=== PATIENT | female | born 1935 | race Caucasian/White ===

== ENCOUNTER → 2016-10-13 | Outpatient (CLI) | payer MEDICARE, BC ==
[2016-10-13 14:53] LABS: CH 27.6; CHCM 33.4; HCT 41.4 % (34.0-46.0); HDW 2.68; HGB 13.8 gm/dL (11.4-16.0); MCH 27.7 pg (25.0-35.0); MCHC 33.3 g/dL (31.0-37.0); MCV 83.2 fL (80.0-100.0); Mean Platelet Volume 7.9; RBC 4.98 m/uL (3.80-5.40); WBC 11.1 k/uL (3.8-10.6)
[2016-10-13 15:01] LABS: Anion Gap 8 mmol/L; Blood Urea Nitrogen 15 mg/dL (7-17); Calcium 9.1 mg/dL (8.4-10.2); Carbon Dioxide 27 mmol/L (22-30); Chloride 106 mmol/L (98-107); Glucose 110 mg/dL (74-99); Non-African American GFR(MDRD) >60 (>60 ml/min/1.73 sqM); Potassium 4.2 mmol/L (3.5-5.1); Sodium 141 mmol/L (137-145)
== END | disposition home or self-care (01) ==
LOC: LABWHC1 14:19
PROVIDERS: ATTEND Internal Medicine Clinical Cardiac Electrophysiology
DX: I47.1 Supraventricular tachycardia (principal)
CPT/HCPCS: 36415; 80048; 85027

== ENCOUNTER 2016-10-28 06:05 | Day surgery (SDC) | payer MEDICARE, BC ==
[~2016-10-28 06:05] MED LIST: SODIUM CHLORIDE 0.9% 1,000 ML IV SCH
[2016-10-28] MEDS: LACTATED RINGERS 1,000 ML IV SCH (06:46)
[2016-10-28 06:54] LABS: Prothrombin Time 19.3 sec (9.0-12.0)
[2016-10-28] MEDS ORDERED: fentaNYL (PF) 50 MCG/ML 2 ML AMP ONE (07:23)
[2016-10-28] MEDS ORDERED: ISOPROTERENOL 250 MCG/1.25 ML SYR IV ONE (07:23)
[2016-10-28] MEDS ORDERED: HYDROmorphone (PF) 1 MG/ML ONE (07:23)
[2016-10-28] MEDS ORDERED: PROPOFOL 10 MG/ML 20 ML VIAL IV ONE (07:23)
[2016-10-28] MEDS ORDERED: KETAMINE 10 MG/ML 20 ML VIAL ONE (07:23)
[2016-10-28] MEDS ORDERED: MIDAZOLAM 2 MG/2 ML VIAL ONE (07:23)
[2016-10-28] MEDS ORDERED: LIDOCAINE 2% INJ 20 MG/ML SQ ONE (08:14)
[2016-10-28] MEDS ORDERED: HYDROcodone/APAP 5-325MG 1 EACH TAB PO PRN (10:54)
[2016-10-28] MEDS ORDERED: ACETAMINOPHEN TAB 325 MG TAB PO PRN (10:54)
[2016-10-28] MEDS ORDERED: ACETAMINOPHEN IV (For NPO) 1,000 MG in EMPTY BAG 1 BAG IVPB ONE (10:54)
--- NOTE | 2016-10-28 10:54 | P.PCN ---
Preoperative Diagnosis: Shilo Leung I the pleasure seeing Mrs. Alexandre electrophysiology follow-up. As you know she had a history of recurrent presyncope and documented narrow complex supraventricular tachycardia. She also has atrial fibrillation. She underwent a diagnostic EP study. She was in sinus rhythm when she arrived. This revealed AV pravin reentry with a heart rate of between 166 275 beats a minute but associated with a sudden drop in blood pressure to the mid 80s. In sinus rhythm when the tachycardia was terminated, her blood pressure improved to the 140s systolic. I will ask her to reduce the metoprolol to 25 mg twice daily since she also has atrial fibrillation and continue Coumadin Thank you for entrusting me with the care of the patient Warm regards Sincerely Hermann Nicole Anesthesia: MAC Disposition: observation
--- NOTE | 2016-10-28 11:59 | CE ---
CARDIAC ELECTROPHYSIOLOGY REPORT This is an 81-year-old who had recurrent presyncope and has had documented supraventricular tachycardia, more than 200 beats per minute. She also has a history of atrial fibrillation and was on Coumadin. She is drug refractory on metoprolol. She is brought in for diagnostic EP study. The patient was brought to the EP lab in a fasting state. Written informed consent was obtained prior to the procedure. The right and left groin are prepped and draped as per protocol and 1% lidocaine was used for local anesthesia. Four venous sheaths were placed; two in the right and to the left femoral veins. Via these, diagnostic catheters were placed in the right heart (high right atrial catheter, HIS bundle catheter, RV catheter catheter and coronary sinus catheter). The patient was in sinus rhythm at the start of the study, narrowing QRS, sinus cycle length 692 milliseconds. QRS with 105 milliseconds. MN interval 157 milliseconds, QT 388 milliseconds. AH interval was 69 millisecond, HV interval 44 milliseconds. Sinus node recovery times at 600, 500 and 400 milliseconds were 1025, 1072 and 678 milliseconds corresponding recovery times within normal limits. Sinus node entrance block was noted with pacing cycle length of 400 milliseconds. AV pravin Wenckebach block 290 milliseconds, VA Wenckebach block 290 milliseconds. No slow pathway conduction with straight pacing. No delta waves noted. With ventricular pacing, tachycardia was induced with decrement in the AH interval. Tachycardia cycle length of 331 milliseconds narrow complex. This was associated with a sudden drop in blood pressure to 80/54 mmHg consistent with a history of presyncope. Pacing maneuvers were performed. Measurements were made and the post pacing interval was 705 milliseconds. Post pacing interval minus tachycardia cycle length of greater than 350 milliseconds. The septal VA time was about 35 milliseconds. His-refractory PVCs did not advance to tachycardia. These features are consistent with AV pravin re- entry. On Isuprel AV pravin Wenckebach block improved to 240 milliseconds. Later extra stimulation was performed. After double extra stimuli in the coronary sinus extra stimulation was performed in the high right atrium. Three-D mapping of the right atrium was performed. The His bundle/cloud was tagged. Coronary sinus was tagged. The tricuspid anulus was tagged. Slow pathway mapping was performed off the coronary sinus os and applied note ablation. No ablation resulted in development of junctional rhythm followed by resumption of sinus rhythm and good contact was achieved. Good power and temperatures were achieved. Temperatures in the mid 50s were noted. Once slow pathway was ablated, an EP study was also again performed. EP study was also again performed post ablation performed with Isuprel as well as off Isuprel. Straight pacing was performed. Burst stimulation was performed. RV pacing was performed. High right atrial pacing was performed. Pacing from the coronary sinus from 2 sides was performed. There was no evidence for any echo beats or slow pathway conduction and AV pravin re-entry. Please note that para-Hisian pacing was also performed prior to Isuprel and there was no evidence for any excessive pathway conduction retrogradely response was noted. At the end of the procedure, all catheters were removed. The patient was transferred back to telemetry. RESULT: 1. Diagnostic EP study revealing AV pravin re-entry as a mechanism of tachycardia. This was associated with a sudden drop in blood pressure to 80 mmHg in the supine position. Consistent with the history of recurrent presyncope associated with episodes of palpitations. 2. She also has a history of atrial fibrillation and is on Coumadin. PROCEDURES PERFORMED: 1. Comprehensive diagnostic EP study. 2. CS pacing and recording. 3. Programmed stimulation following Isuprel. 4. Three-D mapping of SVT. 5. Ablation for SVT. The patient tolerated the procedure well without any acute complications. PLAN: Reduce metoprolol now to 25 mg twice daily for management of atrial fibrillation and continue anticoagulation with Coumadin. Followup in the office in 1 week for groin check. Overnight stay on telemetry. MMODL / IJN: [id number] /
[2016-10-28 13:06] VITALS: BMI 29.2
[2016-10-28] MEDS ORDERED: ONDANSETRON 4 MG/2 ML VIAL IVP PRN (16:06)
[2016-10-28] MEDS ORDERED: LORazepam 1 MG TAB PO SCH (21:00)
[2016-10-29] MEDS ORDERED: LEVOTHYROXINE 100 MCG TAB PO SCH (06:30)
[2016-10-29] MEDS ORDERED: PANTOPRAZOLE 40 MG TABLET PO SCH (07:30)
--- NOTE | 2016-10-29 07:40 | P.DS ---
Providers Attending physician: Hermann Nicole Primary care physician: [facility] Hospital Course: She is doing well. She looks very comfortable sitting in bed comfortably in no chest pain no dizziness no lightheadedness she has been ablating in the hallways. No groin problems at all no nausea overnight she slept well. Vitals are stable she's afebrile 98.2F pulse rate in the 70s and 80s blood pressure 116/61 mmHg respirations normal with sounds are normal no rhonchi no crackles heart sounds S1 and S2 are normal no murmurs or gallops abdomen soft nontender extremities are warm no edema Impression Recurrent presyncope associated with palpitations, diagnostic EP study revealed AV pravin reentry with associated drop in blood pressure to 80 mmHg in the supine position consistent with her symptoms. Status post successful slow pathway ablation, tachycardia was rendered noninducible History of paroxysmal atrial fibrillation Plan Continue anticoagulation, reduce the dose of metoprolol to 25 mg twice daily follow-up in the office for a groin check in about a week. Plan - Discharge Summary New Discharge Prescriptions: No Action Warfarin Sodium [Coumadin] 6 mg PO MOFR Metoprolol Tartrate [Lopressor] 25 mg PO DAILY LORazepam [Ativan] 1 mg PO HS Warfarin Sodium [Coumadin] 4 mg PO SUTUWETHSA Omeprazole [PriLOSEC] 20 mg PO AC-BRKT Levothyroxine Sodium 100 mcg PO DAILY Discharge Medication List LORazepam [Ativan] 1 mg PO HS 10/21/16 [History] Levothyroxine Sodium 100 mcg PO DAILY 10/21/16 [History] Metoprolol Tartrate [Lopressor] 25 mg PO DAILY 10/21/16 [History] Omeprazole [PriLOSEC] 20 mg PO AC-BRKFST 10/21/16 [History] Warfarin Sodium [Coumadin] 4 mg PO SUTUWETHSA 10/21/16 [History] Warfarin Sodium [Coumadin] 6 mg PO MOFR 10/21/16 [History] Activity/Diet/Wound Care/Special Instructions: Post EP study - Ablation instructions 1. Keep access sites dry for 2 days. 2. No heavy lifting or straining for 2 days. 3. Avoid bending the hips repeatedly for 2 days. 4. You may go up and down stairs slowly Call if the following is noted 1. Bleeding, increasing swelling or pain at the access sites. 2. Increasing chest discomfort, especially upon taking a deep breath. 3. Increasing shortness of breath, at rest or with exertion. 4. Undue cough / phlegm 5. Difficulty or pain while swallowing. 6. Pain or change in color in the extremities. 7. Fever, chills, rigors. 8. Increasing headache or neurologic symptoms. 9. Dizziness, fainting, palpitations Continue Coumadin, reduce metoprolol to 25 mg twice daily Follow-up in the office in one week for a groin check Discharge Disposition: HOME SELF-CARE
[2016-10-29 07:42] VITALS: BP 144/81; PULSE 89; RESP 18; TEMP 98.3
[2016-10-29] MEDS ORDERED: METOPROLOL TARTRATE 25 MG TAB PO SCH ×2 (09:00)
[2016-10-29] MEDS: LACTATED RINGERS 1,000 ML IV SCH (09:54)
== END 2016-10-29 09:52 | disposition home or self-care (01) ==
LOC: CATHEP 06:05 → 3OBS 10:42 → CATHEP 10-29 09:52
PROVIDERS: ATTEND Internal Medicine Clinical Cardiac Electrophysiology
DX: I47.1 Supraventricular tachycardia (principal); R55 Syncope and collapse; E78.5 Hyperlipidemia, unspecified; I48.91 Unspecified atrial fibrillation; G25.81 Restless legs syndrome; K21.9 Gastro-esophageal reflux disease without esophagitis; Z82.49 Family history of ischemic heart disease and other diseases of the circulatory system; Z79.899 Other long term (current) drug therapy; Z79.01 Long term (current) use of anticoagulants; Z88.6 Allergy status to analgesic agent
CPT/HCPCS: 93623; 93613; 93653; 85610; C1894; C1769 ×2; C1730 ×3; C1732; C1893; J2001; J2250; J2405; J3010; J1170; J2704

== ENCOUNTER → 2018-08-02 | Outpatient (CLI) | payer MEDICARE, BC ==
--- NOTE | 2018-08-02 14:25 | XR ---
EXAMINATION TYPE: XR chest 2V DATE OF EXAM: 08/02/2018 COMPARISON: 08/25/2015 TECHNIQUE: PA and lateral views submitted. HISTORY: Cough FINDINGS: The lungs are clear and there is no pneumothorax, pleural effusion, or focal pneumonia. Calcificati on breast implants are noted. Atherosclerotic change aorta with ectasia of the aorta. Suspected aneur ysm. Lateral view demonstrates dilation of the aorta. Hypertrophic and degenerative change of the spi ne. IMPRESSION: 1. No acute infiltrate. 2. Suspect the thoracic aortic aneurysm. This may be increased in size relative to the previous CT sc an. Recommend follow-up CT scan to assess for enlargement of thoracic aneurysm.
== END | disposition home or self-care (01) ==
LOC: RADXRMAIN 13:52
PROVIDERS: ATTEND Internal Medicine
DX: I48.0 Paroxysmal atrial fibrillation (principal); R05 Cough
CPT/HCPCS: 71046

== ENCOUNTER → 2018-08-22 | Outpatient (CLI) | payer MEDICARE, BC ==
--- NOTE | 2018-08-22 23:07 | CT ---
EXAMINATION TYPE: CT chest w con DATE OF EXAM: 08/22/2018 COMPARISON: 08/25/2015 HISTORY: 82-year-old female aortic aneurysm. TECHNIQUE: Contiguous axial scanning of the chest after the administration of 100 mL of Isovue 300. Coronal/sagittal reconstructions performed. CT DLP: 279.1mGycm. Automatic exposure control utilized for a dose reduction. FINDINGS: Heart normal size without pericardial effusion. Coronary vessel calcifications are present. Aortic root measures 3.3 cm. Ascending aorta measures 3.7 cm. Mild atherosclerotic arch calcifications and conventional arch vessel branching anatomy. Distal aortic arch measures 3.6 cm. Upper descending thoracic aorta measures 3.1 cm. Long segment fusiform aneurysm of the descending thoracic aorta measures up to 4.8 x 4.3 cm (versus 4 .3 x 4.1 cm on 08/25/2015). Lower descending thoracic aorta measures 3.6 x 3.4 cm. Aorta at the thoracoabdominal junction measures 2.7 cm. 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 Previousl y, this measured 1.4 cm. Cortical cysts and parapelvic cysts within the left kidney measuring up to 1.7 cm. Calcified bilateral breast prostheses. Borderline size mediastinal lymph nodes measuring up to 9 mm versus 7 mm, previously. Mild diffuse bronchial wall thickening with dependent atelectasis. No consolidation or pleural effusi on seen. 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 IMPRESSION: 1. Long segment fusiform aneurysm descending thoracic aorta measuring 4.8 x 4.3 cm (versus 4.3 x 4.1 cm in 2016). 2. Additional ectasia ascending aorta 3.7 cm. 3. 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 This measured 1.4 cm in 20 16. Appropriate follow-up recommended. 4. Borderline sized mediastinal lymph nodes measuring up to 9 mm, increased by a couple millimeters f rom 2016. Probably reactive/post inflammatory.
== END | disposition home or self-care (01) ==
LOC: RADCTMAIN 13:45
PROVIDERS: ATTEND Internal Medicine
DX: I77.819 Aortic ectasia, unspecified site (principal); I72.2 Aneurysm of renal artery
CPT/HCPCS: 82565; 84520; 71260; 36415; Q9967

== ENCOUNTER → 2019-10-12 | Outpatient (CLI) | payer MEDICARE, BC ==
--- NOTE | 2019-10-12 16:37 | CT ---
CT CHEST FOR PULMONARY EMBOLISM. EXAMINATION TYPE: CT angio chest DATE OF EXAM: 10/12/2019 INDICATION: Aortic aneurysm. CT DLP: 250.6 mGycm, Automated exposure control for dose reduction was used. CONTRAST: Patient injected with 100 mL of Isovue 370. COMPARISON: 08/22/2018 TECHNIQUE: CT of the chest is performed on a spiral scan at 2 mm thick sections. Study is performed with intravenous contrast timed for evaluation for thoracic aorta.. This will limit additional porti ons of the evaluation. 3-D MIP images reconstructed by the technologist are reviewed on the computer in the coronal and sagittal planes. Three-D reconstructed images are reviewed. FINDINGS: No persistent filling defects are evident to suggest an acute pulmonary embolism. No mediastinal or hilar adenopathy enlarged by CT criteria is evident. The ascending aorta diameter at the level of the main pulmonary artery is 3.9 cm. The main pulmonary artery diameter at the bifur cation is 2.7 cm. The aorta at the aortic root is 3.3 cm. Aorta at the main pulmonary artery is 3.9 cm. Aorta within th e mid aortic arch is 3.2 cm. The proximal descending thoracic aorta is a transverse dimension of 3.1 cm. There is aneurysmal dilatation of the mid ascending thoracic aorta with the transverse dimension of 3.7 cm. This continues to above the diaphragm. At the diaphragm the AP diameter of the descending thoracic aorta is 2.6 cm. Lung windows are clear. Limited CT section through the upper abdomen are unremarkable. Bilateral breast prostheses with surro unding calcification is present. IMPRESSIONS: 1. Descending thoracic aortic aneurysm within maximum AP diameter of 3.7 cm. There is some aneurysmal dilatation of the ascending thoracic aorta as well at 3.9 cm. 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
== END | disposition home or self-care (01) ==
LOC: RADCTMAIN 12:28
PROVIDERS: ATTEND Internal Medicine
DX: I72.2 Aneurysm of renal artery (principal); I71.2 Thoracic aortic aneurysm, without rupture; I71.9 Aortic aneurysm of unspecified site, without rupture
CPT/HCPCS: 82565; 84520; 71275; 36415; Q9967

== ENCOUNTER → 2020-07-01 | Outpatient (CLI) | payer MEDICARE, BC ==
--- NOTE | 2020-07-01 14:51 | CT ---
EXAMINATION TYPE: CT brain wo con DATE OF EXAM: 07/01/2020 HISTORY: syncope weakness. CT DLP: 1070 mGycm. Automated Exposure Control for Dose Reduction was Utilized. TECHNIQUE: CT scan of the head is performed without contrast. COMPARISON: None. FINDINGS: There is no acute intracranial hemorrhage or midline shift identified. There is moderate diffuse ventricular and sulcal prominence consistent with diffuse age-related cerebral atrophy. Ther e is mild to moderate low-attenuation in the periventricular white matter consistent with chronic sma ll vessel ischemic change. Old mid left cerebellar infarct axial image 20. The globes are intact and the visualized sinuses are clear. No suspicious opacification mastoid air cells. IMPRESSION: No acute intracranial hemorrhage or midline shift. There is moderate diffuse age-relate d cerebral atrophy and mild to moderate chronic small vessel ischemic change noted. 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
--- NOTE | 2020-07-01 16:44 | US ---
EXAMINATION TYPE: US carotid duplex BILAT DATE OF EXAM: 07/01/2020 COMPARISON: NONE CLINICAL HISTORY: R42 Dizziness. EXAM MEASUREMENTS: RIGHT: Peak Systolic Velocity (PSV) cm/sec ----- Right CCA: 47.4 ----- Right ICA: 65.1 ----- Right ECA: 102.7 ICA/CCA ratio: 1.4 RIGHT: End Diastole cm/sec ----- Right CCA: 10.4 ----- Right ICA: 23.0 ----- Right ECA: 12.9 LEFT: Peak Systolic Velocity (PSV) cm/sec ----- Left CCA: 32.0 ----- Left ICA: 65.5 ----- Left ECA: 75.4 ICA/CCA ratio: 2.0 LEFT: End Diastole cm/sec ----- Left CCA: 7.8 ----- Left ICA: 18.5 ----- Left ECA: 9.5 VERTEBRALS (direction of flow): Right Vertebral: Antegrade Left Vertebral: Antegrade Rhythm: Normal Mild to moderate plaque without significant velocity increases. Grayscale, color Doppler, spectral D oppler imaging performed of the carotid arteries. Waveform analysis does not show significant stenosi s of the internal carotid arteries. IMPRESSION: No hemodynamic significant stenosis of the proximal internal carotid arteries by Doppler criteria, an indirect measurement of carotid stenosis Criteria for Assigning % of Stenosis / Diameter reduction (Estimation based on the indirect measurements of the internal carotid artery velocities (ICA PSV). 1. Normal (no stenosis)=ICA PSV < 125 cm/s: ratio < 2.0: ICA EDV<40 cm/s. 2. Less than 50% stenosis=ICA PSV < 125 cm/s: ratio < 2.0: ICA EDV<40 cm/s. 3. 50 to 69% stenosis=ICA PSV of 125 to 230 cm/s: ration 2.0 ? 4.0: ICA EDV 40-100 cm/s. 4. Greater than 70% stenosis to near occlusion= ICA PSV > 230 cm/s: ratio > 4.0: ICA EDV > 100 cm/s. 5. Near occlusion= ICA PSV velocities may be low or undetectable: variable ratio and ICA EDV. 6. Total occlusion=unable to detect flow.
--- NOTE | 2020-07-02 07:39 | ECHOF ---
Referral Reason:R42 Dizziness MEASUREMENTS -------- HEIGHT: 167.6 cm WEIGHT: 72.6 kg BP: RVIDd: 2.9 cm (< 3.3) IVSd: 1.6 cm (0.6 - 1.1) LVIDd: 4.4 cm (3.9 - 5.3) LVPWd: 1.6 cm (0.6 - 1.1) IVSs: 1.8 cm LVIDs: 2.7 cm LVPWs: 2.0 cm LAESV Index (A-L): 45.13 ml/m Ao Diam: 3.2 cm (2.0 - 3.7) AV Cusp: 1.8 cm (1.5 - 2.6) MV EXCURSION: 14.414 mm (> 18.000) MV EF SLOPE: 39 mm/s (70 - 150) EPSS: 1.3 cm MV E Homar: 0.83 m/s MV DecT: 169 ms MV A Homar: 0.95 m/s MV E/A Ratio: 0.87 RAP: 5.00 mmHg RVSP: 29.24 mmHg FINDINGS -------- Sinus rhythm. This was a technically adequate study. The left ventricular size is normal. There is moderate concentric left ventricular hypertrophy. O verall left ventricular systolic function is normal with, an EF between 55 - 60 %. The right ventricle is normal in size. LA is severely dilated >40 ml/m2 The right atrial size is normal. Interatrial and interventricular septum intact. There is no evidence of aortic regurgitation. There is no evidence of aortic stenosis. Mild mitral annular calcification present. Moderate mitral regurgitation is present. Mild tricuspid regurgitation present. There is no evidence of pulmonary hypertension. The right v entricular systolic pressure, as measured by Doppler, is 29.24mmHg. There is no pulmonic regurgitation present. The aortic root size is normal. IVC Not well visulized. There is no pericardial effusion. CONCLUSIONS -------- 1. The left ventricular size is normal. 2. There is moderate concentric left ventricular hypertrophy. 3. Overall left ventricular systolic function is normal with, an EF between 55 - 60 %. 4. LA is severely dilated >40 ml/m2 5. Mild mitral annular calcification present. 6. Moderate mitral regurgitation is present. 7. Mild tricuspid regurgitation present. [employer]T [employer] OPERATOR: Linda Echeverria RDCS
== END | disposition home or self-care (01) ==
LOC: RADUSWWP 13:22
PROVIDERS: ATTEND Internal Medicine
DX: I08.1 Rheumatic disorders of both mitral and tricuspid valves (principal); I67.82 Cerebral ischemia; G31.9 Degenerative disease of nervous system, unspecified
CPT/HCPCS: 70450; 93306; 93880

== ENCOUNTER → 2020-09-22 | Outpatient (CLI) | payer MEDICARE, BC ==
--- NOTE | 2020-09-22 13:42 | XR ---
EXAMINATION TYPE: XR tibia fibula RT DATE OF EXAM: 09/22/2020 COMPARISON: None HISTORY: Fall TECHNIQUE: 2 view right tibia and fibula FINDINGS: No acute fractures or dislocations are within the [id number]. Ankle mortise appears inta ct. Medial tibial plateau is at the edge of the [id number]. Some degenerative changes at the knee may be present. DeGraff follow up exams can be performed 7-10 days from acute trauma for continued pa in IMPRESSION: 1. No acute osseous abnormality right tibia and fibula
== END | disposition home or self-care (01) ==
LOC: RADXRMAIN 12:43
PROVIDERS: ATTEND Family Medicine
DX: S89.91XA Unspecified injury of right lower leg, initial encounter (principal); X58.XXXA Exposure to other specified factors, initial encounter

== ENCOUNTER → 2020-10-01 | Outpatient (CLI) | payer MEDICARE, BC ==
--- NOTE | 2020-10-01 15:17 | CT ---
EXAMINATION TYPE: CT angio chest DATE OF EXAM: 10/01/2020 3:08 PM COMPARISON: CT chest 10/12/2019 and 2019. HISTORY: Thoracic aortic aneurysm. CT DLP: 440.6 mGycm Automated exposure control for dose reduction was used. CONTRAST: CTA scan of the thorax is performed without and with IV Contrast, patient injected with 100 mL of Iso flora 370, aneurysm protocol. 3D reconstructed images are created on an independent workstation and re viewed.. FINDINGS: LUNGS: Mild biapical pleural/parenchymal scarring. Mild scattered posterior basilar scarring. No susp icious new nodules or masses. No pleural effusion or pneumothorax MEDIASTINUM: Noncontrast images show no suspicious hyperdense material to suggest intramural hematoma . Satisfactory enhancement of the central pulmonary arteries. There are no new Greater than 1 cm hil ar or mediastinal lymph nodes. No cardiomegaly or pericardial effusion is seen. Coronary artery ilene cification redemonstrated. Normal three-vessel origin from aortic arch. Moderate mixed plaque in the prominent descending aorta redemonstrated. Descending thoracic aorta measures up to 4.8 cm transverse ly axial image 23 not significantly changed from prior. OTHER: There is eccentric 1.5 cm right renal artery aneurysm axial image 54 redemonstrated. Rim calc ified bilateral breast implants again seen. Prominent anterior lateral spurs in the spine redemonstra spencer. IMPRESSION: Stable 4.8 cm ascending thoracic aortic aneurysm.
== END | disposition home or self-care (01) ==
LOC: RADCTMAIN 13:25
PROVIDERS: ATTEND Internal Medicine
DX: I71.2 Thoracic aortic aneurysm, without rupture (principal)
CPT/HCPCS: 82565; 84520; 71275; 36415; Q9967

== ENCOUNTER 2020-11-03 08:38 | Emergency (ER) | payer MEDICARE, BC ==
[2020-11-03] MEDS ORDERED: FAMOTIDINE 20 MG/2 ML VIAL IV STA (09:32)
[2020-11-03] MEDS ORDERED: methylPREDNISolone SOD SUCCI 125 MG/2 ML VIAL IV STA (09:32)
[2020-11-03] MEDS ORDERED: diphenhydrAMINE 50 MG/ML 1 ML VIAL IVP STA (09:32)
--- NOTE | 2020-11-03 09:35 | ED ---
General Adult HPI - General Chief complaint: Allergic Reaction Stated complaint: Allergic Reaction Source: patient, RN notes reviewed, old records reviewed Mode of arrival: ambulatory Limitations: no limitations - History of Present Illness Initial comments: This is a 85-year-old female presents emergency Department complaining of ALLERGIC reaction. Patient states 2 days ago she started having itching on her arms and legs upper chest and her eyes were red and swollen. Patient states she took a cough that was cold and put him on her eyes immediately even more red. This made the patient think that the new detergent she just switched to last week may have been the inciting problem. Patient denies any difficulty breathing shortness of breath per patient denies any swelling in the mouth tongue or throat. Patient denies any chest pain or palpitations. Patient denies abdominal pain. Patient is neither symptoms this time. - Related Data Home Medications Medication Instructions Recorded Confirmed LORazepam [Ativan] 1 mg PO HS 10/21/16 10/28/16 Levothyroxine Sodium 100 mcg PO DAILY 10/21/16 10/28/16 Metoprolol Tartrate [Lopressor] 25 mg PO BID 10/21/16 10/29/16 Omeprazole [PriLOSEC] 20 mg PO AC-BRKFST 10/21/16 10/28/16 Warfarin Sodium [Coumadin] 4 mg PO SUTUWETHSA 10/21/16 10/28/16 Warfarin Sodium [Coumadin] 6 mg PO MOFR 10/21/16 10/28/16 Previous Rx's Medication Instructions Recorded predniSONE [Deltasone] 40 mg PO DAILY #8 tab 11/03/20 Allergies Allergy/AdvReac Type Severity Reaction Status Date / Time No Known Allergies Allergy Verified 11/03/20 09:09 Review of Systems ROS Statement: Those systems with pertinent positive or pertinent negative responses have been documented in the HPI. ROS Other: All systems not noted in ROS Statement are negative. Past Medical History Past Medical History: Atrial Fibrillation, Thyroid Disorder History of Any Multi-Drug Resistant Organisms: None Reported Past Surgical History: Hysterectomy Additional Past Surgical History / Comment(s): cardiac ablasion Past Psychological History: No Psychological Hx Reported Smoking Status: Never smoker Past Alcohol Use History: None Reported Past Drug Use History: None Reported General Exam - General Exam Comments Initial Comments: GENERAL: Patient is well-developed and well-nourished. Patient is nontoxic and well- hydrated and is in mild distress. ENT: Neck is soft and supple. No significant lymphadenopathy is noted. Oropharynx is clear. Moist mucous membranes. EYES: The sclera were anicteric and conjunctiva were pink and moist. Extraocular movements were intact and pupils were equal round and reactive to light. Eyelids are erythematous and swollen. PULMONARY: Unlabored respirations. Good breath sounds bilaterally. No audible rales rhonchi or wheezing was noted. CARDIOVASCULAR: There is a regular rate and rhythm without any murmurs gallops or rubs. ABDOMEN: Soft and nontender with normal bowel sounds. SKIN: Patient has erythema on the upper chest around both eyes and both eyes are also very swollen. Patient has some small areas of erythema on both legs and arms. Patient states all areas of redness are very itchy NEUROLOGIC: Patient is alert and oriented x3. Cranial nerves II through XII are grossly intact. Motor and sensory are also intact. Normal speech, volume and content. Symmetrical smile. MUSCULOSKELETAL: Normal extremities with adequate strength and full range of motion. LYMPHATICS: No significant lymphadenopathy is noted PSYCHIATRIC: Normal psychiatric evaluation. Limitations: no limitations Course Vital Signs 11/03/20 09:00 Temperature 99.2 F Pulse Rate 70 Respiratory 18 Rate Blood Pressure 140/78 O2 Sat by Pulse 95 Oximetry Medical Decision Making - Medical Decision Making I went back and reevaluated the patient after she received Benadryl Pepcid and Solu-Medrol. Patient states itching was much improved. Patient also noted that the redness in eyes and swelling the eyes and content on a little the redness of the chest and content in the rash on the arms and almost disappeared completely. Disposition Clinical Impression: Allergic reaction Disposition: HOME SELF-CARE Instructions (If sedation given, give patient instructions): General Allergic Reaction (ED) Prescriptions: predniSONE [Deltasone] 40 mg PO DAILY #8 tab Is patient prescribed a controlled substance at d/c from ED?: No Referrals: Adolfo Bhandari MD [Primary Care Provider] - 1-2 days Time of Disposition: 10:50
[2020-11-03 09:38] VITALS: RESP 18; TEMP 99.2
[2020-11-03 10:49] VITALS: BP 174/84; PULSE 73
== END 2020-11-03 11:17 | disposition home or self-care (01) ==
LOC: EC 08:38
DX: T78.40XA Allergy, unspecified, initial encounter (principal); E07.9 Disorder of thyroid, unspecified; I48.91 Unspecified atrial fibrillation; Z79.890 Hormone replacement therapy; Z79.01 Long term (current) use of anticoagulants
CPT/HCPCS: 99283; 96374; 96375; J1200; J2930

== ENCOUNTER → 2021-04-21 | Outpatient (CLI) | payer MEDICARE, BC ==
--- NOTE | 2021-04-21 16:31 | XR ---
EXAMINATION TYPE: XR shoulder complete 3 views LT, XR knee complete 3 views RT DATE OF EXAM: 04/21/2021 Comparison: Correlation CT chest 10/01/2020 Clinical History: 85-year-old female M25.512, M25.561 Findings: Left shoulder: Known aneurysmal descending thoracic aorta. Mild to moderate degenerative changes AC joint with ijeoma nal spurring and capsular hypertrophy. Subacromial space is preserved. There is mild degenerative spu rring inferior humeral head. Suspect a 9 mm loose body along the upper bicipital groove. No acute fra cture, subluxation, dislocation. Right knee: Small knee joint effusion. Tricompartmental degenerative spurring from the moderate in degree. Vascul ar calcifications. Extensor mechanism is intact. No acute fracture, subluxation, dislocation seen. 2. 1 x 0.6 cm ossific density along the superolateral margin of the patella on the AP view not clearly l ocalized on the other views. Impression: Left shoulder: 1. Known aneurysmal descending thoracic aorta. Appropriate surveillance follow-up recommended. 2. Guaf-fv-ppciybsn AC joint OA. 3. Mild glenohumeral joint OA with suspected 9 mm loose body along the bicipital groove. 4. Osteopenia. No acute osseous abnormality seen. Right knee: 5. 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 A weight-bearing view could better a ssess the degree of cartilage and joint space narrowing. 6. Probable fragmented enthesophyte at the along the superolateral aspect of the patella. 7. No acute fracture identified. There is small knee joint effusion. If symptoms persist or concern f or an occult injury or internal derangement, MRI can be performed.
== END | disposition home or self-care (01) ==
LOC: RADXRMAIN 14:49
PROVIDERS: ATTEND Internal Medicine
DX: M25.561 Pain in right knee (principal); I71.2 Thoracic aortic aneurysm, without rupture; M19.012 Primary osteoarthritis, left shoulder; M85.80 Other specified disorders of bone density and structure, unspecified site

== ENCOUNTER 2022-07-29 11:31 | Emergency (ER) | payer MEDICARE ==
[2022-07-29 11:54] VITALS: RESP 18
[2022-07-29 12:30] LABS: Anisocytosis Slight; Basophils % (A) 0 %; Eosinophils # (A) 0.1 k/uL (0-0.7); Eosinophils % (A) 0 %; HCT 38.7 % (34.0-46.0); HGB 12.9 gm/dL (11.4-16.0); Lymphocytes # (A) 0.7 k/uL (1.0-4.8); Lymphocytes % (A) 6 %; MCH 26.5 pg (25.0-35.0); MCHC 33.5 g/dL (31.0-37.0); MCV 79.2 fL (80.0-100.0); Mean Platelet Volume 8.6; Microcytosis Slight; Monocytes # (A) 0.7 k/uL (0-1.0); Monocytes % (A) 5 %; Neutrophils # (A) 11.4 k/uL (1.3-7.7); Neutrophils % (A) 88 %; Platelet Count 256 k/uL (150-450); RBC 4.89 m/uL (3.80-5.40); RDW 16.2 % (11.5-15.5); WBC 12.9 k/uL (3.8-10.6)
[2022-07-29 12:36] LABS: ALT 18 U/L (4-34); AST 25 U/L (14-36); African American GFR (CKD) 77 (>60 ml/min/1.73 sqM); Albumin 3.8 g/dL (3.5-5.0); Alkaline Phosphatase 59 U/L (38-126); Anion Gap 11 mmol/L; Blood Urea Nitrogen 17 mg/dL (7-17); Calcium 8.5 mg/dL (8.4-10.2); Carbon Dioxide 21 mmol/L (22-30); Chloride 105 mmol/L (98-107); Glucose 209 mg/dL (74-99); Non-African American GFR(CKD) 66 (>60 ml/min/1.73 sqM); Potassium 4.3 mmol/L (3.5-5.1); Sodium 137 mmol/L (137-145); Total Bilirubin 1.1 mg/dL (0.2-1.3); Total Protein 6.5 g/dL (6.3-8.2)
--- NOTE | 2022-07-29 12:38 | ED ---
Fall HPI - General Source: patient, EMS Mode of arrival: EMS <Kenzie Rios - Last Filed: 07/29/22 14:05> <Amador Estrada - Last Filed: 07/29/22 14:24> - General Chief Complaint: Fall Stated Complaint: Syncope Time Seen by Provider: 07/29/22 11:58 - History of Present Illness Initial Comments: patient is a pleasant 86 year old male presenting to the emergency room via EMS. She reports that she ambulating to the bathroom last night and believes that she was on her way back to her bed when she fell due to unknown cause. She reports waking in the morning on the ground. She states that she eventually was able to crawl to her back door when Aging Was Delivering a Meal for Her and They Contacted EMS to Transport Here Here to the Hospital. As Stated She Is Unsure of the Exact Events Leading up to Her Fall. She Is Complaining of Pain in Her Left Wrist, Right Arm and an Abrasion to Her right forehead. She is complaining of range of motion impairment in her right upper arm but has good range of motion in her in her right hand/wrist. She is complaining of tenderness and pain at the left wrist with no significant impairment in range of motion. With the exception of the pain to her arms she denies any other complaints or concerns. She denies any headache, dizziness, altered mental status/confusion, blurred or double vision, chest pain, shortness of breath, abdominal pain, nausea, vomiting or weakness. She is on warfarin for a history of atrial fibrillation and also has a past medical history significant for hypothyroidism. (Kenzie Rios) - Related Data Home Medications Medication Instructions Recorded Confirmed LORazepam [Ativan] 1 mg PO HS 10/21/16 07/29/22 Levothyroxine Sodium 100 mcg PO DAILY 10/21/16 07/29/22 Metoprolol Tartrate [Lopressor] 50 mg PO BID 10/21/16 07/29/22 Warfarin Sodium [Coumadin] 4 mg PO [id number]/21/16 07/29/22 Ferrous Sulfate [Feosol] 325 mg PO Q48H 07/29/22 07/29/22 Warfarin Sodium 6 mg PO MO@2100 07/29/22 07/29/22 Allergies Allergy/AdvReac Type Severity Reaction Status Date / Time No Known Allergies Allergy Verified 07/29/22 12:12 Review of Systems ROS Other: All systems not noted in ROS Statement are negative. <Kenzie Rios - Last Filed: 07/29/22 14:05> ROS Other: All systems not noted in ROS Statement are negative. <Amador Estrada - Last Filed: 07/29/22 14:24> ROS Statement: Those systems with pertinent positive or pertinent negative responses have been documented in the HPI. Past Medical History Past Medical History: Atrial Fibrillation, Thyroid Disorder History of Any Multi-Drug Resistant Organisms: None Reported Past Surgical History: Hysterectomy Additional Past Surgical History / Comment(s): cardiac ablasion Past Psychological History: No Psychological Hx Reported Smoking Status: Never smoker Past Alcohol Use History: None Reported Past Drug Use History: None Reported <Kenzie Rios - Last Filed: 07/29/22 14:05> General Exam Limitations: no limitations General appearance: alert, in no apparent distress Head exam: Present: normocephalic Expanded Head exam: Present: abrasion (right forehead above eye) Eye exam: Present: normal appearance, PERRL, EOMI. Absent: scleral icterus, conjunctival injection, nystagmus, periorbital swelling ENT exam: Present: normal exam, mucous membranes moist Neck exam: Present: normal inspection, other (c-collar applied). Absent: ten derness Respiratory exam: Present: normal lung sounds bilaterally. Absent: respiratory distress, wheezes, rales, rhonchi, stridor Cardiovascular Exam: Present: regular rate, normal rhythm, normal heart sounds. Absent: systolic murmur, diastolic murmur, rubs, gallop, clicks GI/Abdominal exam: Present: soft, normal bowel sounds. Absent: distended, tenderness, guarding, rebound, rigid Left Hand Wrist exam: Present: full ROM, tenderness, swelling, ecchymosis Vascular: Absent: vascular compromise Right Shoulder Exam: Present: tenderness, tenderness over AC joint. Absent: full ROM Vascular: Absent: vascular compromise Back exam: Present: normal inspection. Absent: paraspinal tenderness, vertebral tenderness Neurological exam: Present: alert, oriented X3, CN II-XII intact Expanded Speech: Present: fluid speech Cranial nerves: EOM's Intact: Normal, Gag Reflex: Normal, Tongue Deviation: Normal, Nystagmus: Normal, Facial Sensation: Normal, Facial Palsy with Forehead Movement: Normal, Facial Palsy without Forehead Movement: Normal Cerebellar function: Finger to Nose: Normal, Heel to García: Normal Sensory exam: Upper Extremity Light Touch: Normal, Lower Extremity Light Touch: Normal Motor strength exam: RUE: 3 (impaired upper range of motion due to pain and fracture.), LUE: 5, RLE: 5, LLE: 5 [place] Total: 15 Psychiatric exam: Present: normal affect, normal mood Skin exam: Present: abrasion (abrasion as above) <Kenzie Rios - Last Filed: 07/29/22 14:05> Course Vital Signs 07/29/22 07/29/22 07/29/22 11:42 12:00 13:30 Temperature 98.3 F Pulse Rate 92 102 H 85 Respiratory 18 18 18 Rate Blood Pressure 125/102 124/84 111/67 O2 Sat by Pulse 94 L 94 L 95 Oximetry 07/29/22 07/29/22 13:45 14:00 Temperature Pulse Rate 89 86 Respiratory 18 18 Rate Blood Pressure 122/71 121/73 O2 Sat by Pulse 95 94 L Oximetry Procedures - Orthopedic Splinting/Casting Injury #1 Side: left Upper Extremity Injury Location: wrist Upper Extremity Immobilizer: wrist splint Injury #2 Side: right Upper Extremity Injury Location: long arm Upper Extremity Immobilizer: sling/shoulder immobilizer, posterior splint <Kenzie Rios - Last Filed: 07/29/22 14:05> Medical Decision Making - Lab Data Result diagrams: 07/29/22 12:15 07/29/22 12:15 <Kenzie Rios - Last Filed: 07/29/22 14:05> - Lab Data Result diagrams: 07/29/22 12:15 07/29/22 12:15 <Amador Estrada - Last Filed: 07/29/22 14:24> - Medical Decision Making Was pt. sent in by a medical professional or institution ([facility], INDUSTRIAL SALES REPRESENTATIVE, urgent care, hospital, or shelter...) When possible be specific @ -No Did you speak to anyone other than the patient for history (EMS, parent, family, police, friend...)? What history was obtained from this source @ -No Did you review nursing and triage notes (agree or disagree)? Why? @ -I reviewed and agree with nursing and triage notes Were old charts reviewed (outside hosp., previous admission, EMS record, old EKG, old radiological studies, urgent care reports/EKG's, shelter records)? Report findings @ -No old charts were reviewed Differential Diagnosis (chest pain, altered mental status, abdominal pain women, abdominal pain men, vaginal bleeding, weakness, fever, dyspnea, syncope, headache, dizziness, GI bleed, back pain, seizure, CVA, palpatations, mental health, musculoskeletal)? @ -Differential Syncope: Valvular disease, hypertrophic cardiomyopathy, pulmonary embolism, tamponade, tachycardia, bradycardia, LA, hypovolemia, hemorrhage, dissection, anemia, intracranial hemorrhage, seizure, hypoglycemia, carbon monoxide poisoning, this is not meant to be an all-inclusive list. EKG interpreted by me (3pts min.). @ -Sinus rhythm, ventricular rate 95 bpm, IL interval 148 ms, QRS duration 90 ms, QT/QTC 378/431 ms, PRT axes -25, 27, 13 X-rays interpreted by me (1pt min.). @ -X-ray right shoulder/humerus: Fracture of the surgical humeral neck. AC joint intact X-ray left wrist: Distal radial fracture nondisplaced with intra-articular extension. CT interpreted by me (1pt min.). @ -None done U/S interpreted by me (1pt. min.). @ -CT of the brain and cervical spine: No cervical spine fracture or subluxation. Per radiologist concerning area in the right frontal region for a small subarachnoid hemorrhage versus osseous calcification. Dr. Estrada might supervising physician was notified of this finding and initiation for transfer was started along with reversal of warfarin. Please see his dictation for details regarding consults with trauma team at [facility] and his intervention. What testing was considered but not performed or refused? (CT, X-rays, U/S, labs)? Why? @ -None What meds were considered but not given or refused? Why? @ -None Did you discuss the management of the patient with other professionals (professionals i.e. , PA, INDUSTRIAL SALES REPRESENTATIVE, lab, RT, psych nurse, social services, retail training manager, teacher, president and chief executive officer, case folder)? Give summary @ -No Was smoking cessation discussed for >3mins.? @ -No Was critical care preformed (if so, how long)? @ -No Were there social determinants of health that impacted care today? How? (Homelessness, low income, unemployed, alcoholism, drug addiction, transportation, low edu. Level, literacy, decrease access to med. care, alf, rehab)? @ -No Was there de-escalation of care discussed even if they declined (Discuss DNR or withdrawal of care, Hospice)? DNR status @ -No What co-morbidities impacted this encounter? (DM, HTN, Smoking, COPD, CAD, Cancer, CVA, ARF, Chemo, Hep., AIDS, mental health diagnosis, sleep apnea, morbid obesity)? @ -Atrial fibrillation on warfarin Was patient admitted / discharged? Hospital course, mention meds given and route, prescriptions, significant lab abnormalities, going to OR and other pertinent info. @ -86 -year-old female presenting to the emergency room with complaints of a fall during the night last night with unknown down time and unknown events prior to fall with abrasion to head and pain in left wrist and right upper arm with impaired range of motion to right upper arm on blood thinners. Fall from standing. Discussed patient's presentation with my attending Dr. Estrada advised no indication for trauma activation will proceed with workup with CT of the brain and cervical spine. Apply c-collar, check EKG, CBC, CMP, PT INR along with lactic acid and CK-MB Computed tomography scan report called by radiologist with concern of right frontal subarachnoid hemorrhage versus calcification. Dr. Estrada advised of these findings as indicated above. X-ray of left wrist positive for radial fracture, short arm splint applied without complication. Right upper arm humerus fracture noted. Posterior right arm splint with sling applied without complication. Neurovascularly intact pre-and post-splint application. Patient advised of diagnostic imaging results and need for transfer out to tertiary facility due to concern for subarachnoid bleeding. Nursing staff to call patient's daughter per her request. Lactic acid slightly elevated at 2.2, CK normal. Troponin negative. EKG demonstrates sinus rhythm. INR therapeutic at 2.2 and to be reversed due to identified brain bleed. Platelets stable, hemoglobin stable, WBC slightly elevated with shift of CBC 12.9 with neutrophils 11.4. Glucose elevated at 209, carbon dioxide 21 all remaining electrolytes normal. Liver enzymes and alkaline phosphatase are normal. Will coordinate with Dr. Estrada for transfer to [facility] for further evaluation and treatment for possible small arachnoid hemorrhage, right humeral fracture, and left wrist fracture status post fall at home. will give morphine for pain Patient to be transferred in stable condition to [facility] for further evaluation of subarachnoid hemorrhage, left humeral fracture and right radius fracture. Undiagnosed new problem with uncertain prognosis? @ -No Drug Therapy requiring intensive monitoring for toxicity (Heparin, Nitro, Insulin, Cardizem)? @ -No Were any procedures done? @ -Yes, splint applied to left wrist and right arm Diagnosis/symptom? @ -Right frontal subarachnoid hemorrhage, possible Acute, or Chronic, or Acute on Chronic? @ -Acute Uncomplicated (without systemic symptoms) or Complicated (systemic symptoms)? @ -Complicated Side effects of treatment? @ -No Exacerbation, Progression, or Severe Exacerbation? @ -No Poses a threat to life or bodily function? How? (Chest pain, USA, LA, pneumonia, PE, COPD, DKA, ARF, appy, cholecystitis, CVA, Diverticulitis, Homicidal, Suicidal, threat to staff... and all critical care pts) @ -Yes at risk for continued bleeding and cerebral ischemia. Diagnosis/symptom? @ -Left humeral surgical neck fracture Acute, or Chronic, or Acute on Chronic? @ -Acute Uncomplicated (without systemic symptoms) or Complicated (systemic symptoms)? @ -Uncomplicated Side effects of treatment? @ -none Exacerbation, Progression, or Severe Exacerbation] @ -no Poses a threat to life or bodily function? @ -Yes, fracture with dislocation at risk for impaired mobility and poor healing Diagnosis/symptom? @ -Right distal radial fracture Acute, or Chronic, or Acute on Chronic? @ -Acute Uncomplicated (without systemic symptoms) or Complicated (systemic symptoms)? @ -Uncomplicated Side effects of treatment? @ -none Exacerbation, Progression, or Severe Exacerbation] @ -no Poses a threat to life or bodily function? @ -Yes at risk for impaired mobility and poor healing of radius. Case discussed Dr. Estrada. ([facility]) Patient did not meet criteria for trauma surgery activation. She was a fall from standing, not above ground-level, on Coumadin. Initially evaluated by mid- level provider Suzan. Was notified by mid-level provider of traumatic injury for the patient. Patient has a left wrist fracture, right humeral neck fracture, as well as a questionable right frontal subarachnoid hemorrhage versus calcification. Patient is on Coumadin for A. fib. Fall occurred last night. Was able to crawl over to the door when [employer] arrived and presents after EMS was called at that time. Alert and oriented 4. Patient has pain in the left wrist and right shoulder. Patient is on Coumadin. Patient had a therapeutic INR at 2.2. Remainder of labs are within acceptable limits. Patient's imaging showed a questionable right frontal subarachnoid hemorrhage versus calcification, however in the setting of a fall on the nurse's cannot rule out subarachnoid hemorrhage. Patient also has a right humeral neck fracture as well as a left radial fracture. Splinting was applied to the right humerus as well as left radius by the mid-level provider Suzan. Patient requires transfer for evaluation by neurosurgery. She is A & O 4. GCS of 15. Vital signs within acceptable limits. Cervical collar is in place. Due to the therapeutic INR in the setting of Coumadin use, we will reverse it with 10 of vitamin K, K Centra, as well as TXA. We will hang a nicardipine drip for as needed to keep systolic blood pressures below 140. Patient started on a normal saline drip. Patient given a tetanus booster. She requires transfer. She was updated was in agreement this plan. Attempts were made multiple times to transfer to [facility]. Initial phone call was at 1308. We called back again at 1335. We called back again at 1400. Each time we were able to contact transfer line but they were having a difficult time contacting trauma surgeon on-call. Eventually trauma cordinator Aisha Bruno was able to contact the trauma team. I received a direct phone call from the resident on-call working under Dr. Alvarez of the on-call trauma surgeon, Dr. Joseph Rivera. I did provide information to Dr. Rivera who accepted the transfer. I was also instructed to contact Dr. Cruz, the emergency department physician district loss prevention manager who accepted the transfer as well. They were in agreement with the plan. Patient will be transferred in serious condition. Was critical care preformed (if so, how long)? @ -Yes, 35 min (Amador Estrada) - Lab Data Lab Results 07/29/22 07/29/22 07/29/22 Range/Units 12:15 12:15 12:15 WBC 12.9 H (3.8-10.6) k/uL RBC 4.89 (3.80-5.40) m/uL Hgb 12.9 (11.4-16.0) gm/dL Hct 38.7 (34.0-46.0) % MCV 79.2 L (80.0-100.0) fL MCH 26.5 (25.0-35.0) pg MCHC 33.5 (31.0-37.0) g/dL RDW 16.2 H (11.5-15.5) % Plt Count 256 (150-450) k/uL MPV 8.6 Neutrophils % 88 % Lymphocytes % 6 % Monocytes % 5 % Eosinophils % 0 % Basophils % 0 % Neutrophils # 11.4 H (1.3-7.7) k/uL Lymphocytes # 0.7 L (1.0-4.8) k/uL Monocytes # 0.7 (0-1.0) k/uL Eosinophils # 0.1 (0-0.7) k/uL Basophils # 0.0 (0-0.2) k/uL Anisocytosis Slight Microcytosis Slight PT 21.8 H (9.0-12.0) sec INR 2.2 H (<1.2) Sodium 137 (137-145) mmol/L Potassium 4.3 (3.5-5.1) mmol/L Chloride 105 (98-107) mmol/L Carbon Dioxide 21 L (22-30) mmol/L Anion Gap 11 mmol/L BUN 17 (7-17) mg/dL Creatinine 0.81 (0.52-1.04) mg/dL Est GFR (CKD-EPI)AfAm 77 (>60 ml/min/1.73 sqM) Est GFR (CKD-EPI)NonAf 66 (>60 ml/min/1.73 sqM) Glucose 209 H (74-99) mg/dL Plasma Lactic Acid Cornell (0.7-2.0) mmol/L Calcium 8.5 (8.4-10.2) mg/dL Total Bilirubin 1.1 (0.2-1.3) mg/dL AST 25 (14-36) U/L ALT 18 (4-34) U/L Alkaline Phosphatase 59 (38-126) U/L CK-MB (CK-2) (0.0-2.4) ng/mL Total Protein 6.5 (6.3-8.2) g/dL Albumin 3.8 (3.5-5.0) g/dL 07/29/22 07/29/22 Range/Units 12:15 12:18 WBC (3.8-10.6) k/uL RBC (3.80-5.40) m/uL Hgb (11.4-16.0) gm/dL Hct (34.0-46.0) % MCV (80.0-100.0) fL MCH (25.0-35.0) pg MCHC (31.0-37.0) g/dL RDW (11.5-15.5) % Plt Count (150-450) k/uL MPV Neutrophils % % Lymphocytes % % Monocytes % % Eosinophils % % Basophils % % Neutrophils # (1.3-7.7) k/uL Lymphocytes # (1.0-4.8) k/uL Monocytes # (0-1.0) k/uL Eosinophils # (0-0.7) k/uL Basophils # (0-0.2) k/uL Anisocytosis Microcytosis PT (9.0-12.0) sec INR (<1.2) Sodium (137-145) mmol/L Potassium (3.5-5.1) mmol/L Chloride (98-107) mmol/L Carbon Dioxide (22-30) mmol/L Anion Gap mmol/L BUN (7-17) mg/dL Creatinine (0.52-1.04) mg/dL Est GFR (CKD-EPI)AfAm (>60 ml/min/1.73 sqM) Est GFR (CKD-EPI)NonAf (>60 ml/min/1.73 sqM) Glucose (74-99) mg/dL Plasma Lactic Acid Cornell 2.2 H* (0.7-2.0) mmol/L Calcium (8.4-10.2) mg/dL Total Bilirubin (0.2-1.3) mg/dL AST (14-36) U/L ALT (4-34) U/L Alkaline Phosphatase (38-126) U/L CK-MB (CK-2) 0.8 (0.0-2.4) ng/mL Total Protein (6.3-8.2) g/dL Albumin (3.5-5.0) g/dL Critical Care Time Critical Care Time: Yes Total Critical Care Time: 35 <Amador Estrada - Last Filed: 07/29/22 14:24> Disposition Time of Disposition: 14:13 - Out of Hospital Transfer - Req. Specs Out of Hospital Transfer - Requested Specifics: Other Emergency Center ([facility]) <Kenzie Rios - Last Filed: 07/29/22 14:05> - Out of Hospital Transfer - Req. Specs Out of Hospital Transfer - Requested Specifics: Other Emergency Center <Amador Estrada - Last Filed: 07/29/22 14:24> Clinical Impression: Fall, Subarachnoid hemorrhage following injury with brief loss of consciousness but without open intracranial wound, Closed fracture of neck of left humerus, Fracture of right distal radius Disposition: OTHER INSTITUTION NOT DEFINED Condition: Serious Referrals: Antonio Guillen MD [Primary Care Provider] - 1-2 days
[2022-07-29 12:45] LABS: INR 2.2 (<1.2); Prothrombin Time 21.8 sec (9.0-12.0)
--- NOTE | 2022-07-29 13:00 | CT ---
EXAMINATION TYPE: CT brain cspine wo con CT DLP: 1440.2 mGycm, Automated exposure control for dose reduction was used. DATE OF EXAM: 07/29/2022 12:42 PM COMPARISON: CT brain 07/01/2020. CLINICAL INDICATION:Female, 86 years old with history of fall on warfarin; Fall on Warfarin TECHNIQUE: Brain: Multiple axial CT images of the brain were obtained without IV contrast. Cspine: Axial CT images from the skull base to the inferior aspect of T2 we obtained without intraven ous contrast. Coronal and sagittal reformatted images were also reviewed. FINDINGS: Brain: Extra-axial spaces: Single focus of right frontal subarachnoid hemorrhage versus cortical calcificati on (series 201, image 38). Ventricular system: Within normal limits Cerebral parenchyma: Cerebral atrophy. No mass effect. The ross-white junction is well differentiate d. Scattered hypoattenuating areas are seen within the white matter. Cerebellum: Remote left cerebellar infarct. Mass effect: No evidence of midline shift. Intracranial vasculature: Atherosclerotic calcifications of the intracranial vessels. Soft tissues: Normal. Calvarium/osseous structures: No depressed skull fracture. Paranasal sinuses and mastoid air cells: Clear. Visualized orbits: Bilateral aphakia Cervical spine: Fracture: None. Osseous structures: Multilevel degenerative disc disease changes with endplate spurring and disc oste ophyte complex's. Multilevel facet arthropathy. Ankylosis of the right C4-C5 facet joint. Vertebral alignment: Degenerative grade 1 anterolisthesis of C3 on C4 and C4 on C5 with mild retrolis thesis of C5 and C6. Spinal canal/Neural Foramina: Disc osteophyte complexes at C5-C6 with at least mild spinal canal sten osis. Facet joint uncovertebral joint arthropathy scattered throughout the cervical spine with varyin g degrees of neural foraminal stenosis. Neck soft tissues: Prevertebral soft tissues are within normal limits. Other: The airway is patent. Biapical pleural-parenchymal scarring. Bilateral carotid bulb calcificat ions. IMPRESSION: 1. Single focus of subarachnoid hemorrhage versus cortex calcification along the right frontal lobe. Attention on follow-up exam. 2. No evidence of cervical spine fracture. 3. Mild to moderate multilevel degenerative disc disease. 4. Remote left cerebellar infarct. 5. Nonspecific white matter changes likely related to chronic small vessel ischemic disease. Findings called to and discussed with Kenzie Rios at 12:55 PM on 07/29/2022.
--- NOTE | 2022-07-29 13:06 | XR ---
EXAMINATION TYPE: XR wrist complete LT DATE OF EXAM: 07/29/2022 CLINICAL HISTORY: pain TECHNIQUE: Frontal, lateral and oblique images of the left wrist are obtained. COMPARISON: None. FINDINGS: Virtually nondisplaced distal radial fracture with what appears to be intra-articular exten wilfrido. No additional fractures seen. Severe degenerative change first carpal metacarpal joint space. C hondrocalcinosis triangular fibrocartilage. IMPRESSION: Distal radial fracture as described
--- NOTE | 2022-07-29 13:09 | XR ---
EXAMINATION TYPE: XR shoulder complete RT, XR humerus RT DATE OF EXAM: 07/29/2022 CLINICAL HISTORY: pain COMPARISON: NONE TECHNIQUE: Frontal and lateral images of the right humerus are obtained. 3 views of the right shoul shawn also submitted. FINDINGS: There is fracture at the surgical neck of the humerus on the right. There is mild proximal migration of the distal fracture component with the rotation of the humeral head. No additional fract ure seen. AC joint is intact. The remainder of the humerus is intact. IMPRESSION: Fracture surgical neck of the right humerus.
[2022-07-29] MEDS ORDERED: Kcentra PER PHARMACY 1 EACH MISC MISCELLANE PRN (13:15)
[2022-07-29] MEDS ORDERED: TRANEXAMIC ACID IN NACL,ISO-OS 1,000 MG in SALINE 1 100ML.BAG IV STA (13:15)
[2022-07-29] MEDS ORDERED: PHYTONADIONE 10 MG in SODIUM CHLORIDE 0.9% 50 ML IVPB STA (13:16)
[2022-07-29] MEDS ORDERED: EMPTY BAG 1 BAG with HUMAN PROTHROMBIN COMPLX 1,668 UNIT IV ONE (13:30)
[2022-07-29] MEDS ORDERED: SODIUM CHLORIDE 0.9% 1,000 ML IV STA (14:10)
[2022-07-29] MEDS ORDERED: niCARdipine 20 MG in SODIUM CHLORIDE 0.9% 192 ML IV SCH (14:15)
[2022-07-29] MEDS ORDERED: DIPH,PERTUS(ACELL)TETVAC-LF 0.5 ML VIAL IM ONE (14:20)
[2022-07-29] MEDS ORDERED: MORPHINE SULFATE 2 MG/ML SYRINGE IVP STA (14:30)
[2022-07-29 15:06] VITALS: BP 130/67; PULSE 84; TEMP 98
== END 2022-07-29 15:09 | disposition other institution (70) ==
LOC: EC 11:31
DX: S72.002A Fracture of unspecified part of neck of left femur, initial encounter for closed fracture (principal); S52.502A Unspecified fracture of the lower end of left radius, initial encounter for closed fracture; S06.6X9A Traumatic subarachnoid hemorrhage with loss of consciousness of unspecified duration, initial encounter; I48.91 Unspecified atrial fibrillation; E03.9 Hypothyroidism, unspecified; Z79.890 Hormone replacement therapy; Z79.899 Other long term (current) drug therapy; Z23 Encounter for immunization; W06.XXXA Fall from bed, initial encounter
CPT/HCPCS: 36415; 80053; 82553; 83605; 85025; 85610; 73030; 73060; 73110; 72125; 70450; 90715; 99291; 96365; 96368; 96375 ×2; 90471; J3430; J2270; J7168

== ENCOUNTER → 2023-05-27 | Outpatient (CLI) | payer MEDICARE ==
--- NOTE | 2023-05-27 10:23 | XR ---
EXAMINATION TYPE: XR chest 2V DATE OF EXAM: 05/27/2023 COMPARISON: 10/02/2018 HISTORY: Shortness of breath TECHNIQUE: Frontal and lateral views of the chest are obtained. FINDINGS: Scattered senescent parenchymal changes noted. Hyperinflation compatible with COPD. No evidence for infiltrate. No evidence for atelectasis. Heart size is stable. Mediastinal structures are stable and grossly unremarkable. No evidence for hilar prominence. Degenerative changes dorsal spine. IMPRESSION: 1. No evidence for acute pulmonary disease.
== END | disposition home or self-care (01) ==
LOC: RADXRMAIN 10:04
PROVIDERS: ATTEND Internal Medicine
DX: R05.8 Other specified cough (principal); R06.02 Shortness of breath
CPT/HCPCS: 71046

== ENCOUNTER → 2023-09-22 | Outpatient (CLI) | payer MEDICARE ==
--- NOTE | 2023-10-31 12:58 | XR ---
Patient: Bhavani Alexandre C Ordering Physician: Unknown, Unknown ID: [id number] Phone, Pager: Phone: N/A Pager: N/A : [phone] Age/Gender: 87Y, F Primary Location: N/A Procedure: XR chest 2V Study D ate: 09/22/2023 11:39:00 AM EXAMINATION TYPE: XR chest 2V DATE OF EXAM: 10/09/2023 11:11 AM CLINICAL INDICATION: Dyspnea COMPARISON: Chest radiographs from 05/27/2023 TECHNIQUE: XR chest 2V Frontal view of the chest. FINDINGS: Lungs/Pleura: There is flattening of the diaphragm with increased lucency of the lungs. No evidence o f pneumothorax, pleural effusion or focal consolidation. Pulmonary vascularity: Unremarkable. Heart/mediastinum: Cardiomediastinal silhouette is unremarkable. Atherosclerotic calcifications are seen in the aorta. A loop recorder projects over the left thorax over the heart. Musculoskeletal: No acute osseous pathology. Calcified breast implants bilaterally. Other findings: None IMPRESSION: 1. No acute cardiopulmonary disease process. 2. COPD changes.
== END | disposition home or self-care (01) ==
LOC: RADXRMAIN 11:30
PROVIDERS: ATTEND Family Medicine
DX: J44.9 Chronic obstructive pulmonary disease, unspecified (principal); R06.09 Other forms of dyspnea
CPT/HCPCS: 71046

== ENCOUNTER → 2023-11-07 | Outpatient (CLI) | payer MEDICARE ==
--- NOTE | 2023-11-14 21:37 | BD ---
EXAMINATION TYPE: Axial Bone Density DATE OF EXAM: 11/07/2023 CLINICAL HISTORY: 88 years old Female. ICD-10 CODE: Z78.0 ASYMPTOMATIC MENOPAUSAL STATE Height: 65 Weight: 160.8 FRAX RISK QUESTIONS: Alcohol (3 or more units per day): no Family History (Parent hip fracture): no Glucocorticoids (More than 3mos): no (Ex: prednisone, prednisolone, methylprednisolone, dexamethasone, and hydrocortisone). History of Fracture in Adulthood: yes Secondary Osteoporosis: 1. Type 1 Diabetes: no 2. Hyperthyroidism: no 3. Menopause before 45: no 4. Malnutrition: no 5. Chronic liver disease: no Rheumatoid Arthritis: no Current Tobacco Use: no RISK FACTORS HISTORY OF: History of Wrist Fracture: left When: 2022 Surgery to Spine/Hip(right/left)/Wrist (right/left): no MEDICATIONS: Thyroid Medications: synthroid EXAM MEASUREMENTS: Bone mineral densitometry was performed using the [employer] System. Bone mineral density as measured about the Lumbar spine is: ----- L1-L4(G/cm2): 0.993 T Score Values are as follows: ----- L1: -1.5 ----- L2: -1.9 ----- L3: -2.0 ----- L4: -1.1 ----- L1-L4: -1.6 Z Score Values are as follows: ----- L1: 0.2 ----- L2: -0.2 ----- L3: -0.3 ----- L4: 0.6 ----- L1-L4: 0.1 Bone mineral density : baseline Bone mineral density about the R hip (g/cm2): 0.761 Bone mineral density about the L hip (g/cm2): 0.841 T Score values are as follows: -----R Neck: -2.1 -----L Neck: -2.0 -----R Total: -2.0 -----L Total: -1.3 Z Score values are as follows: -----R Neck: 0.2 -----L Neck: 0.3 -----R Total: 0.3 -----L Total: 0.9 Bone mineral density : baseline FRAX%s: The graph provided illustrates a 20.7% chance for a major osteoporotic fx and a 6.4% chance f or the hips probability for fx in 10 years time. IMPRESSION: Osteopenia (T Score between -2.5 and -1). There is slightly increased risk of fracture and the patient may be considered for treatment. Re-Screen 2-5 years. NOTE: T-SCORE=SD OF THE YOUNG ADULT MEAN. [facility], , 11/14/2023 9:34 PM
== END | disposition home or self-care (01) ==
LOC: RADBDWWP 15:19
PROVIDERS: ATTEND Family Medicine
DX: Z78.0 Asymptomatic menopausal state
CPT/HCPCS: 77080